=== PATIENT | female | born 1940 | race Asian ===

== ENCOUNTER 2018-02-18 12:40 | Inpatient (IN) | payer OTHER ==
[~2018-02-18] VITALS: Ht 152.4 cm; Wt 76.4 kg
[2018-02-18 12:40] VITALS: Ht 152.4 cm; Wt 76.4 kg
[2018-02-18 13:21] LABS: BASOPHIL % 0.2 % (0-2)
[2018-02-18 13:26] LABS: CALCIUM 7.8 mg/dL (8.5-10.1); CARBON DIOXIDE 22.4 mmol/L (21-32); CHLORIDE SERUM 108 mmol/L (98-107); GLUCOSE SERUM 91 mg/dL (74-106); POTASSIUM SERUM 4.9 mmol/L (3.5-5.1); SODIUM SERUM 137 mmol/L (136-145)
[2018-02-18 13:36] LABS: PLATELET COUNT 110 x10^3mcL (130-400); RED CELL DISTRIBUTION WIDTH 19.2 % (11.5-14.5)
[2018-02-18 13:37] LABS: ALKALINE PHOSPHATASE 139 U/L (46-116); ALT/SGPT 65 U/L (14-59); AST/SGOT 68 U/L (15-37); BILIRUBIN TOTAL 3.3 mg/dL (0.20-1.00); LIPASE 298 IU/L (73-393)
[2018-02-18 13:39] LABS: ALBUMIN 0.9 g/dL (3.4-5.0); TOTAL PROTEIN, SERUM 5.4 g/dL (6.4-8.2)
[2018-02-18 17:29] LABS: PHOSPHOROUS 2.8 mg/dL (2.5-4.9)
[2018-02-18 17:36] LABS: T3 TOTAL 0.3 ng/mL
[2018-02-18 17:37] LABS: FREE T4 1.35 ng/dL (0.76-1.46)
[2018-02-18 17:39] LABS: IRON 100 ug/dL (50-170)
[2018-02-18 17:40] LABS: FREE THYROXINE INDEX 1.5 ug/dL (1.4-4.5); T4(THYROXINE) 3.6 ug/dL (4.7-13.3); TOTAL IRON BINDING CAPACITY 84 ug/dL (250-450)
[2018-02-18 18:27] VITALS: BP 113/71
[2018-02-18 21:28] VITALS: BP 132/69
[2018-02-19 05:10] LABS: microscopic required? YES; urine erythrocyte TRACE (NEGATIVE)
[2018-02-19 06:31] LABS: CALCIUM 7.7 mg/dL (8.5-10.1); CARBON DIOXIDE 23.8 mmol/L (21-32); CHLORIDE SERUM 108 mmol/L (98-107); CREATININE SERUM 1.1 mg/dL (0.6-1.0); GLUCOSE SERUM 80 mg/dL (74-106); POTASSIUM SERUM 4.9 mmol/L (3.5-5.1); SODIUM SERUM 135 mmol/L (136-145)
[2018-02-19 09:38] LABS: BASOPHIL % 0.2 % (0-2)
[2018-02-19 09:41] LABS: RED CELL DISTRIBUTION WIDTH 20.7 % (11.5-14.5)
[2018-02-19 09:42] LABS: PLATELET COUNT 103 x10^3mcL (130-400)
[2018-02-19 12:11] VITALS: BP 130/66
[2018-02-19 17:23] VITALS: BP 115/59
[2018-02-19 19:50] VITALS: BP 125/73
[2018-02-20 05:22] VITALS: BP 143/68
[2018-02-20 06:23] LABS: ALKALINE PHOSPHATASE 101 U/L (46-116); ALT/SGPT 47 U/L (14-59); AST/SGOT 43 U/L (15-37); BILIRUBIN DIRECT 2.26 mg/dL (0.0-0.2); BILIRUBIN TOTAL 4.1 mg/dL (0.20-1.00); CARBON DIOXIDE 21.2 mmol/L (21-32); CHLORIDE SERUM 106 mmol/L (98-107); CREATININE SERUM 1.1 mg/dL (0.6-1.0); GLUCOSE SERUM 89 mg/dL (74-106); MAGNESIUM 1.9 mg/dL (1.8-2.4); PHOSPHOROUS 3.4 mg/dL (2.5-4.9); POTASSIUM SERUM 4.7 mmol/L (3.5-5.1); SODIUM SERUM 137 mmol/L (136-145)
[2018-02-20 06:24] LABS: ALBUMIN 1.7 g/dL (3.4-5.0); TOTAL PROTEIN, SERUM 5.1 g/dL (6.4-8.2)
[2018-02-20 06:39] LABS: BASOPHIL % 0.1 % (0-2)
[2018-02-20 06:44] LABS: PLATELET COUNT 73 x10^3mcL (130-400); RED CELL DISTRIBUTION WIDTH 20.8 % (11.5-14.5)
[2018-02-20 08:04] VITALS: BP 117/65
[2018-02-20 08:10] LABS: ALPHA FETOPROTEIN TUMOR MARKER 694.3 ng/mL (0.0-8.3)
[2018-02-20 18:11] VITALS: BP 125/63
[2018-02-20 20:55] VITALS: BP 127/71
[2018-02-21 04:42] VITALS: BP 150/81
[2018-02-21 07:23] LABS: ALKALINE PHOSPHATASE 94 U/L (46-116); ALT/SGPT 41 U/L (14-59); AST/SGOT 42 U/L (15-37); BILIRUBIN DIRECT 1.82 mg/dL (0.0-0.2); BILIRUBIN TOTAL 5.25 mg/dL (0.20-1.00); CALCIUM 7.9 mg/dL (8.5-10.1); CARBON DIOXIDE 24.8 mmol/L (21-32); CHLORIDE SERUM 106 mmol/L (98-107); CREATININE SERUM 1.1 mg/dL (0.6-1.0); GLUCOSE SERUM 146 mg/dL (74-106); PHOSPHOROUS 3.2 mg/dL (2.5-4.9); POTASSIUM SERUM 3.7 mmol/L (3.5-5.1); SODIUM SERUM 138 mmol/L (136-145)
[2018-02-21 07:28] LABS: ALBUMIN 2.5 g/dL (3.4-5.0); TOTAL PROTEIN, SERUM 5.4 g/dL (6.4-8.2)
[2018-02-21 08:49] VITALS: BP 132/64
[2018-02-21 09:28] LABS: BASOPHIL % 0.2 % (0-2)
[2018-02-21 09:29] LABS: PLATELET COUNT 67 x10^3mcL (130-400); RED CELL DISTRIBUTION WIDTH 20.9 % (11.5-14.5)
[2018-02-21 12:14] VITALS: BP 136/76
[2018-02-21] MEDS ORDERED: ALD50 PO (14:08)
[2018-02-21] MEDS ORDERED: LAC30L PO (14:16)
[2018-02-21] MEDS ORDERED: L20 PO (14:17)
[2018-02-21 14:26] VITALS: BP 136/76
[2018-02-21 16:25] VITALS: BP 146/76
[2018-02-21] MEDS ORDERED: ULTRAM50 MG PO (16:35)
[2018-02-21] MEDS ORDERED: ULT50 PO (16:39)
== END 2018-02-21 16:58 | disposition home or self-care (01) | DRG 441 ==
LOC: ED 12:40 → MU 16:51 → DU 16:51 → MU 17:41 → DU 02-20 21:59
PROVIDERS: Emergency Medicine; Internal Medicine Gastroenterology; ADMIT Internal Medicine
PROC: 30233N1 Transfusion of Nonautologous Red Blood Cells into Peripheral Vein, Percutaneous Approach (ICD-10-PCS; principal; 2018-02-18)
DX: K72.90 Hepatic failure, unspecified without coma (principal); N17.0 Acute kidney failure with tubular necrosis; C22.0 Liver cell carcinoma; D50.0 Iron deficiency anemia secondary to blood loss (chronic); K74.69 Other cirrhosis of liver; D69.6 Thrombocytopenia, unspecified; E83.51 Hypocalcemia; I86.8 Varicose veins of other specified sites; D53.9 Nutritional anemia, unspecified
CPT/HCPCS: 82962; 84439; C9113; J1885; J1940; J2354; J2405; J3010; J3430; J7030; J7040; P9016; P9047; Q0092; Q0163